=== PATIENT | female | born 1950 | race Caucasian/White ===

== ENCOUNTER 2025-02-05 23:53 | Emergency (ER) | payer OTHER ==
[~2025-02-05] VITALS: Ht 154.9 cm; Wt 59.1 kg
[2025-02-06 00:07] VITALS: TEMP 98.4
[2025-02-06] MEDS ORDERED: IBUP-1492 PO (00:48)
[2025-02-06] MEDS: SODIUM CHLORIDE 0.9% 1,000 ML IV ONE (01:04)
[2025-02-06] MEDS: ONDANSETRON HCL 4 MG/2 ML VIAL IVP ONE (01:05)
[2025-02-06 01:11] LABS: BASOPHILS % (AUTO) 0.1 % (0.0-2.0); EOSINOPHILS % (AUTO) 1.1 % (1.0-6.0); LYMPHOCYTES # (AUTO) 0.7 K/uL (1.0-4.8); LYMPHOCYTES % (AUTO) 7.4 % (22.0-44.0); MEAN CORPUSCULAR HEMOGLOBIN 29.5 pg (26.0-34.0); MEAN CORPUSCULAR HGB CONC 34.2 G/dL (31.0-37.0); MEAN CORPUSCULAR VOLUME 86 fL (80-100); MONOCYTES # (AUTO) 0.3 K/uL (0.1-1.0); MONOCYTES % (AUTO) 3.4 % (2.0-9.0); NEUTROPHILS # (AUTO) 8.1 K/uL (1.8-7.7); PLATELET COUNT (AUTO) 259 K/uL (150-450); RED BLOOD CELL COUNT(AUTO) 4.76 MIL/uL (4.00-5.20); RED CELL DISTRIBUTION WIDTH 14.2 % (11.5-14.5); WHITE BLOOD COUNT (AUTO) 9.2 K/uL (4.5-11.0)
[2025-02-06 01:21] LABS: ANION GAP 9 mmol/L (8-16); CALCIUM, TOTAL 9.1 mg/dL (8.8-10.5); CARBON DIOXIDE 27 mmol/L (22-29); CHLORIDE 102 mmol/L (98-107); CREATININE 0.86 mg/dL (0.60-1.30); GLOMERULAR FILTR. RATE CALC > 60 mL/min (>60); GLUCOSE,RANDOM 144 mg/dL (70-110); LIPASE 45 U/L (16-77); SODIUM SERUM 138 mmol/L (136-145); UREA NITROGEN, BLOOD 26 mg/dL (7-18)
[2025-02-06 03:15] VITALS: BP 142/72; PULSE 87; RESP 16; O2SAT 99
[2025-02-06] MEDS: MAG HYDROX/ALUMINUM HYD/SIMETH ES 30 ML SUSPENSION UDCUP PO ONE (03:37)
[2025-02-06] MEDS ORDERED: FAMO20 PO (04:18)
[2025-02-06] MEDS ORDERED: ONDA-104 PO (04:18)
== END 2025-02-06 04:22 | disposition home or self-care (01) ==
LOC: EMS 23:53
DX: E86.0 Dehydration (principal); K21.9 Gastro-esophageal reflux disease without esophagitis
CPT/HCPCS: 99285; 80048; 83690; 85025; 36415; 96374; 71045; 96361; 93005; J2405; J7030